=== PATIENT | male | born 1945 | race Caucasian/White ===

== ENCOUNTER 2024-07-08 21:04 | Inpatient (IN) | payer MEDICARE, OTHER ==
[~2024-07-08] VITALS: Ht 160 cm; Wt 72.7 kg
[2024-07-08 23:00] VITALS: BP 128/84; O2SAT 93
[2024-07-08 23:15] VITALS: BP 155/49; O2SAT 97
[2024-07-08 23:30] VITALS: BP 144/130; O2SAT 98
[2024-07-08] MEDS ORDERED: DOPamine 400 MG/D5W 250 ML RTU BAG IV PRN (23:30)
[2024-07-08 23:45] VITALS: BP 141/50; O2SAT 98
[2024-07-09] VITALS (49 sets, daily range): BP systolic 117–179; BP diastolic 38–118; TEMP 97.5–98.4; O2SAT 93–99
[2024-07-09] MEDS ORDERED: ONDANSETRON HCL/PF 4 MG/2 ML VIAL IVP PRN
[2024-07-09] MEDS ORDERED: TEMAZEPAM 15 MG CAPSULE PO PRN
[2024-07-09] MEDS ORDERED: ACETAMINOPHEN 325 MG TABLET PO PRN
[2024-07-09] MEDS ORDERED: Z GUARD REMEDY 4 OZ OINT TP PRN
[2024-07-09] MEDS ORDERED: MAG HYDROX/AL HYDROX/SIMETH 30 ML UDC PO PRN
[2024-07-09] MEDS ORDERED: DEXTROSE 50%-WATER 50 ML DISP.SYRIN IV PRN
[2024-07-09] MEDS ORDERED: MAGNESIUM HYDROXIDE 30 ML UDC PO PRN
[2024-07-09 04:40] LABS: BASOPHILS # (AUTO) 0.1 K/uL (0.0-0.2); BASOPHILS % (AUTO) 0.5 % (0.0-2.0); EOSINOPHILS # (AUTO) 0.2 K/uL (0.0-0.7); HEMATOCRIT 36 % (39-51); LYMPHOCYTES # (AUTO) 1.5 K/uL (0.8-4.8); LYMPHOCYTES % (AUTO) 13.2 % (20.0-44.0); MEAN CORPUSCULAR HEMOGLOBIN 27 PG (26.0-33.0); MEAN CORPUSCULAR HGB CONC 33 g/dl (31.0-36.0); MEAN CORPUSCULAR VOLUME 81 fL (80-96); MONOCYTES # (AUTO) 0.7 K/uL (0.1-1.30); MONOCYTES % (AUTO) 6.1 % (2.0-12.0); NEUTROPHILS # (AUTO) 8.9 K/uL (1.8-8.9); NEUTROPHILS % (AUTO) 78.2 % (43.0-81.0); PLATELET COUNT (AUTO) 213 K/uL (150-450); RED BLOOD CELL COUNT(AUTO) 4.43 MIL/uL (4.5-6.0); RED CELL DISTRIBUTION WIDTH 14.9 % (11.5-15.0); WHITE BLOOD COUNT (AUTO) 11.4 K/uL (4.3-11.0)
[2024-07-09 04:57] LABS: CALCIUM, SERUM 9.3 mg/dL (8.5-10.1); CARBON DIOXIDE 25 mmol/L (21-32); CHLORIDE 108 mmol/L (98-107); CREATININE 1.2 mg/dL (0.6-1.3); GLUCOSE 132 mg/dL (74-106); MAGNESIUM 2.3 mg/dL (1.8-2.4); PHOSPHORUS 4.4 mg/dL (2.5-4.9); POTASSIUM 5.4 mmol/L (3.5-5.1); SODIUM SERUM 143 mmol/L (136-145); UREA NITROGEN, BLOOD 40 mg/dL (7-18)
[2024-07-09 04:58] LABS: CHOLESTEROL 115 mg/dL (<200); HDL CHOLESTEROL 32 mg/dL (40-60); LDL 64 mg/dL (0-99); TRIGLYCERIDES 109 mg/dL (30-150)
[2024-07-09] MEDS: PANTOPRAZOLE 40 MG TABLET.DR PO SCH (08:31)
[2024-07-09] MEDS: BLOOD SUGAR DIAGNOSTIC 1 EACH STRIP IN SCH (08:39)
[2024-07-09] MEDS: IV NS 0.9% 1,000 ML IV PRN (09:01)
[2024-07-09 09:20] LABS: IRON, SERUM 28 ug/dl (50-175); TOTAL IRON BINDING CAPACITY 312 ug/dl (250-450)
[2024-07-09] MEDS ORDERED: ASPI-1169 PO (09:29)
[2024-07-09] MEDS ORDERED: LINA1TAB7 PO (09:29)
[2024-07-09] MEDS ORDERED: SLOW RELEASE IRON PO (09:29)
[2024-07-09] MEDS ORDERED: CYAN1TAB14 PO (09:29)
[2024-07-09] MEDS ORDERED: METO-358 PO (09:29)
[2024-07-09] MEDS ORDERED: OLME40TA12 PO (09:29)
[2024-07-09] MEDS ORDERED: PATI8.4P PO (09:29)
[2024-07-09] MEDS ORDERED: MAGN400T30 PO (09:29)
[2024-07-09] MEDS ORDERED: ATOR40TA PO (09:29)
[2024-07-09] MEDS ORDERED: AMLO5TAB4 PO (09:29)
[2024-07-09] MEDS ORDERED: IMIP25TA6 PO (09:29)
[2024-07-09] MEDS ORDERED: ICOS1CAP PO (09:29)
[2024-07-09 09:40] LABS: CHOLESTEROL 115 mg/dL (<200); FERRITIN 49 ng/mL (8-388); HDL CHOLESTEROL 32 mg/dL (40-60); LDL 63 mg/dL (0-99); TRIGLYCERIDES 113 mg/dL (30-150)
[2024-07-09] MEDS: SODIUM POLYSTYRENE SULFONATE 15 G/60 ML BOTTLE PO ONE (10:58)
[2024-07-09] MEDS: INSULIN REGULAR, HUMAN 100 UNIT/ML 3 ML VIAL SQ PRN (13:20)
[2024-07-09] MEDS: NIFEdipine XL (30MG) 30 MG TAB PO ONE (19:34)
[2024-07-10] VITALS (31 sets, daily range): BP systolic 114–165; BP diastolic 40–80; TEMP 98–98.3; O2SAT 90–100
[2024-07-10 04:42] LABS: BASOPHILS # (AUTO) 0.1 K/uL (0.0-0.2); BASOPHILS % (AUTO) 0.5 % (0.0-2.0); EOSINOPHILS # (AUTO) 0.2 K/uL (0.0-0.7); EOSINOPHILS % (AUTO) 2.1 % (0.0-6.0); HEMATOCRIT 32 % (39-51); HEMOGLOBIN 10.6 g/dL (13.5-17.5); LYMPHOCYTES # (AUTO) 1.2 K/uL (0.8-4.8); LYMPHOCYTES % (AUTO) 10.8 % (20.0-44.0); MEAN CORPUSCULAR HEMOGLOBIN 27 PG (26.0-33.0); MEAN CORPUSCULAR HGB CONC 33 g/dl (31.0-36.0); MEAN CORPUSCULAR VOLUME 82 fL (80-96); MONOCYTES # (AUTO) 0.9 K/uL (0.1-1.30); MONOCYTES % (AUTO) 7.9 % (2.0-12.0); NEUTROPHILS # (AUTO) 8.7 K/uL (1.8-8.9); NEUTROPHILS % (AUTO) 78.7 % (43.0-81.0); PLATELET COUNT (AUTO) 204 K/uL (150-450); RED BLOOD CELL COUNT(AUTO) 3.91 MIL/uL (4.5-6.0); RED CELL DISTRIBUTION WIDTH 14.8 % (11.5-15.0); WHITE BLOOD COUNT (AUTO) 11.1 K/uL (4.3-11.0)
[2024-07-10 04:56] LABS: ALANINE AMINOTRANSFERASE 50 U/L (12-78); ALKALINE PHOSPHATASE 93 U/L (46-116); ASPARTATE AMINOTRANSFERASE 23 U/L (15-37); BILIRUBIN,TOTAL 0.6 mg/dL (0.2-1.0); CALCIUM, SERUM 8.2 mg/dL (8.5-10.1); CARBON DIOXIDE 23 mmol/L (21-32); CHLORIDE 110 mmol/L (98-107); CREATININE 1.2 mg/dL (0.6-1.3); GLUCOSE 145 mg/dL (74-106); MAGNESIUM 1.9 mg/dL (1.8-2.4); PHOSPHORUS 4.6 mg/dL (2.5-4.9); SODIUM SERUM 145 mmol/L (136-145); UREA NITROGEN, BLOOD 43 mg/dL (7-18)
== END 2024-07-10 16:34 | disposition home or self-care (01) | DRG 309 ==
LOC: ICU 22:33
PROVIDERS: ADMIT Nurse Practitioner Acute Care; ATTEND Internal Medicine
DX: I44.2 Atrioventricular block, complete (principal); C79.51 Secondary malignant neoplasm of bone; R18.8 Other ascites; J90 Pleural effusion, not elsewhere classified; N17.9 Acute kidney failure, unspecified; D64.9 Anemia, unspecified; E78.5 Hyperlipidemia, unspecified; F32.A Depression, unspecified; I25.10 Atherosclerotic heart disease of native coronary artery without angina pectoris; Z87.891 Personal history of nicotine dependence; I70.0 Atherosclerosis of aorta; Z95.2 Presence of prosthetic heart valve; Z96.641 Presence of right artificial hip joint; E11.9 Type 2 diabetes mellitus without complications; E86.0 Dehydration; E87.5 Hyperkalemia; I11.0 Hypertensive heart disease with heart failure; I50.9 Heart failure, unspecified; Z87.01 Personal history of pneumonia (recurrent); D72.829 Elevated white blood cell count, unspecified; C80.1 Malignant (primary) neoplasm, unspecified
CPT/HCPCS: 36415; 71045-TC; 80048-TC; 80053-TC; 80061-TC; 82728-TC; 82962-TC; 83540-TC; 83735-TC; 83880; 84100-TC; 84439-TC; 84443-TC; 84484-TC; 85025-TC; 87081-TC; 93307-TC; A4223; G0378; J1265; J1815; J7030